=== PATIENT | male | born 1990 | race African-American/Black ===

== ENCOUNTER 2017-03-14 07:10 | Emergency (ER) | payer MEDICAID ==
--- NOTE | 2017-03-14 08:07 | ER Document Report ---
ED General - General Mode of Arrival: Wheelchair Information source: Patient TRAVEL OUTSIDE OF THE [place] IN LAST 30 DAYS: No - HPI Onset: Other - Refer to HPI notes Similar symptoms previously: Yes Recently seen / treated by doctor: No - General Chief Complaint: Foot Pain Stated Complaint: LEFT FOOT PAIN Time Seen by Provider: 03/14/17 07:46 Notes: Patient is a 26 year old male presenting to the emergency department for pain to his right elbow and left foot. Patient has a history of tendonitis and states his pain is similar to such. Patient denies any injury. Paitent took Tylenol and used ice/heat without relief. Patient states he has Crohn's disease and he sees Dr. Eugene for such. Patient does not follow up with a regular primary care physician. Patient is allergic to the pertussis vaccination. ( CYDNEY SRIVASTAVA) - Related Data Allergies/Adverse Reactions: Pertussis Vaccines Allergy (Verified 03/14/17 07:43) Home Medications: Current Home Medications Infliximab [Remicade Inj 100 mg Vial] 1 mg IV [id number] 03/14/17 [History] Mesalamine [Apriso ER 0.375 gm Cap.sr] 1 cap PO DAILY 03/14/17 [History] Past Medical History - General Information source: Patient - Social History Smoking Status: Never Smoker Cigarette use (# per day): No Chew tobacco use (# tins/day): No Frequency of alcohol use: None Drug Abuse: None Family History: None Patient has suicidal ideation: No Patient has homicidal ideation: No Past Surgical History: Reports: Hx Cholecystectomy - Immunizations Hx Diphtheria, Pertussis, Tetanus Vaccination: Yes Review of Systems - Review of Systems Constitutional: No symptoms reported EENT: No symptoms reported Cardiovascular: No symptoms reported Respiratory: No symptoms reported Gastrointestinal: No symptoms reported Genitourinary: No symptoms reported Male Genitourinary: No symptoms reported Musculoskeletal: See HPI Skin: No symptoms reported Hematologic/Lymphatic: No symptoms reported Neurological/Psychological: No symptoms reported -: Yes All other systems reviewed and negative Physical Exam - Vital signs Interpretation: Normal - General General appearance: Appears well, Alert In distress: Mild - HEENT Head: Normocephalic, Atraumatic Eyes: Normal Pupils: PERRL Mucous membranes: Moist - Respiratory Respiratory status: No respiratory distress Chest status: Nontender Breath sounds: Normal Chest palpation: Normal - Cardiovascular Rhythm: Regular Heart sounds: Normal auscultation Murmur: No - Abdominal Inspection: Normal Distension: No distension Bowel sounds: Normal Tenderness: Nontender Organomegaly: No organomegaly - Back Back: Normal, Nontender - Extremities General upper extremity: Tender - mild tenderness over the right olecranon, Edema - Mild swelling over the right olecranon General lower extremity: Other - tenderness over the mid proximal dorsal left foot, and plantar mid left foot - Neurological Neuro grossly intact: Yes Cognition: Normal Orientation: AAOx4 Aida Coma Scale Eye Opening: Spontaneous Dewey Coma Scale Verbal: Oriented Dewey Coma Scale Motor: Obeys Commands Aida Coma Scale Total: 15 Speech: Normal - Psychological Associated symptoms: Normal affect, Normal mood - Skin Skin Temperature: Warm Skin Moisture: Dry - Vital signs Vitals: Temp Pulse Resp BP Pulse Ox 98.6 F 63 18 143/79 H 99 03/14/17 07:11 03/14/17 07:11 03/14/17 07:11 03/14/17 07:11 03/14/17 07:11 Discharge - Discharge Clinical Impression: Tendinitis of left foot, Elbow pain, right Condition: Stable Disposition: HOME, SELF-CARE Additional Instructions: Your exam suggests you have strained or inflamed tendon and your left dorsal foot. Your right elbow is tender over the olecranon process without evidence of bursitis at this time. Take 2 Aleve every 12 hours, or ibuprofen 800 mg every 8 hours for inflammation pain. Rest the elbow and stay off of the foot for a few days. Your primary care provider Saturday if not improving. The [employer] computer shows you are assigned to [facility]. Forms: Return to Work Scribe Attestation: 03/14/17 08:14 I personally performed the services described in the documentation, reviewed and edited the documentation which was dictated to the scribe in my presence, and it accurately records my words and actions. (ROGER BOYKIN) Scribe Documentation - Scribe Written by Ana:: Ana Baker, 03/14/17 8:26 acting as scribe for :: Susan
[2017-03-14 08:19] VITALS: BP 133/66
== END 2017-03-14 08:21 | disposition home or self-care (01) ==
LOC: ER 07:10
DX: M77.52 Other enthesopathy of left foot and ankle (principal); M79.672 Pain in left foot; M25.521 Pain in right elbow; K50.90 Crohn's disease, unspecified, without complications; Z88.7 Allergy status to serum and vaccine
CPT/HCPCS: 99283

== ENCOUNTER 2017-03-19 07:41 | Emergency (ER) | payer MEDICAID, OTHER ==
[2017-03-19 07:48] VITALS: BP 134/82
--- NOTE | 2017-03-19 08:32 | ER Document Report ---
ED General - General TRAVEL OUTSIDE OF THE [place] IN LAST 30 DAYS: No - General Chief Complaint: Foot Pain Stated Complaint: RIGHT FOOT PAIN Time Seen by Provider: 03/19/17 08:02 - HPI Notes: Patient is a 26-year-old male presents to the ED complaining of continued left foot pain 1-2 weeks. The pain does not radiate. He was last seen 2 days ago and diagnosed with tendinitis in his left dorsal foot and left plantar foot. He was directed to use NSAIDs and follow-up with us PCM. Patient states that he has been taking Advil with minimal relief. Patient states the pain on his dorsal foot has resolved but he has continued pain to his left plantar foot, and he believes that this should have gone away by now. Patient states that he does limp on occasion and that his morning steps are the worst. Patient did get a massage yesterday with no noted improvement. Denies any fever, URI, sore throat, cough, cp, abd pain, n/v/d, dysuria, or rash. (ZENON RUBI) - Related Data Allergies/Adverse Reactions: Pertussis Vaccines Allergy (Verified 03/19/17 07:45) Past Medical History - Social History Smoking Status: Never Smoker Chew tobacco use (# tins/day): No Frequency of alcohol use: None Drug Abuse: None Family History: None Renal/ Medical History: Denies: Hx Peritoneal Dialysis Past Surgical History: Reports: Hx Cholecystectomy - Immunizations Hx Diphtheria, Pertussis, Tetanus Vaccination: Yes Review of Systems - Review of Systems Notes: REVIEW OF SYSTEMS: CONSTITUTIONAL : Denies fever, chills, or sweats. Denies recent illness. CARDIOVASCULAR: Denies chest pain. Denies palpitations or racing or irregular heart beat. Denies ankle edema. RESPIRATORY: Denies cough, cold, or chest congestion. Denies shortness of breath, difficulty breathing, or wheezing. GASTROINTESTINAL: Denies abdominal pain or distention. Denies nausea, vomiting , or diarrhea. Denies blood in vomitus, stools, or per rectum. Denies black, tarry stools. Denies constipation. GENITOURINARY: Denies difficulty urinating, painful urination, burning, frequency, blood in urine, or discharge. MUSCULOSKELETAL: see hpi SKIN: Denies rash, lesions or sores. HEMATOLOGIC : Denies easy bruising or bleeding. NEUROLOGICAL: Denies confusion or altered mental status. Denies passing out or loss of consciousness. Denies dizziness or lightheadedness. Denies headache. Denies weakness or paralysis or loss of use of either side. Denies problems with gait or speech. Denies sensory loss, numbness, or tingling. ALL OTHER SYSTEMS REVIEWED AND NEGATIVE. Dictation was performed using [employer] voice recognition software (ZENON RUBI) Physical Exam - Vital signs Vitals: Temp Pulse Resp BP Pulse Ox 98.7 F 72 14 134/82 H 100 03/19/17 07:46 03/19/17 07:46 03/19/17 07:46 03/19/17 07:46 03/19/17 07:46 Notes: PHYSICAL EXAMINATION: GENERAL: Well-appearing, well-nourished and in no acute distress. LUNGS: Breath sounds clear to auscultation bilaterally and equal. No wheezes rales or rhonchi. HEART: Regular rate and rhythm without murmurs, rubs, gallops. Musculoskeletal: FROM to passive/active of LE's b/l. Strength 5+/5. Felix neg b/ l. Tendons and ligamentous stable. + tenderness to plantar foot (soft tissue) along the plantar fascia. No bony tenderness. Extremities: No cyanosis, clubbing, or edema b/l. Peripheral pulses 2+ b/l to PT/DP. Capillary refill less than 3 seconds. NEUROLOGICAL: Favors left foot, otherwise unremarkable gait. Normal sensory, motor exams. Reflexes 2+ b/l. PSYCH: Normal mood, normal affect. SKIN: Warm, Dry, normal turgor, no rashes or lesions noted. (ZENON RUBI) Course - Re-evaluation Re-evalutation: 03/19/17 08:50 Patient is an afebrile, well-hydrated, 26yo male who presents with ongoing left foot pain, suspect plantar fasciitis based on H&P. Vitals stable. Neg [place] ankle rules for imaging. Low suspicion for any fx/dislocation, rupture, or clot. Rx for voltaren gel given today. Instructions to see PCM in 2-3 days for further management; possible consults with Ortho/PT/Podiatry. All questions answered thoroughly that the patient had. Reviewed stretches for the foot to utilize. Conservative measures otherwise. Return to the ED with worsening symptoms as reviewed in d/c. Pt in agreement. 03/19/17 10:13 (ZENON RUBI) - Vital Signs Vital signs: Temp Pulse Resp BP Pulse Ox 98.7 F 72 14 134/82 H 100 03/19/17 07:46 03/19/17 07:46 03/19/17 07:46 03/19/17 07:46 03/19/17 07:46 Discharge - Discharge Clinical Impression: Left foot pain, Plantar fasciitis of left foot Condition: Stable Disposition: HOME, SELF-CARE Additional Instructions: Rest, Ice, Compression, Elevation Tylenol/ibuprofen as needed Use cream as directed Light stretches daily Strength exercises as able Moist heat and massage may help F/u with your PCP in 2-3 days for a recheck--You are assigned to [facility] Consider consult(s) with Orthopedics/physical therapy/podiatry for ongoing/ worsening symptoms Return to the ED with any worsening pain, swelling, numbness/tingling, muscle weakness, calf pain, inability to walk, or development of fever. Prescriptions: Diclofenac Sodium [Voltaren] 100 gm TP QID PRN #100 gel..gm. PRN Reason: Forms: Elevated Blood Pressure, Return to Work Referrals: [facility] ([place]) [Provider Group] - Follow up as needed
== END 2017-03-19 08:39 | disposition home or self-care (01) ==
LOC: ER 07:41
DX: M79.671 Pain in right foot (principal); M72.2 Plantar fascial fibromatosis; Z90.49 Acquired absence of other specified parts of digestive tract
CPT/HCPCS: 99283